=== PATIENT | male | born 1970 | race Two or more races ===

== ENCOUNTER 2024-02-02 10:24 | Outpatient (AMB) | payer MEDICAID, SELFPAY ==
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
[2024-02-02 10:44] VITALS: BP 111/70; PULSE 66; RESP 19; TEMP 36.7; O2SAT 95
== END 2024-02-02 11:20 | disposition home or self-care (01) ==
LOC: HODAHC 10:24
PROVIDERS: PCP Student in an Organized Health Care Education/Training Program; Referring Provider Student in an Organized Health Care Education/Training Program; Supervising Provider Internal Medicine; Visit Provider Student in an Organized Health Care Education/Training Program
DX: E78.5 Hyperlipidemia, unspecified (principal); E11.9 Type 2 diabetes mellitus without complications; Z79.4 Long term (current) use of insulin; Z79.84 Long term (current) use of oral hypoglycemic drugs; Z76.0 Encounter for issue of repeat prescription; M17.0 Bilateral primary osteoarthritis of knee; I10 Essential (primary) hypertension; H53.8 Other visual disturbances
CPT/HCPCS: 99213; G0463

== ENCOUNTER 2024-05-03 10:01 | Outpatient (AMB) | payer MEDICAID, SELFPAY ==
--- NOTE | 2024-05-03 10:11 | ACNOTE_ITS ---
Vital Signs 05/13/24 13:33 Weight 76.7 kg Weight Measurement Method Standing Scale BP 120/78 Blood Pressure Source Automatic Cuff Blood Pressure Location Left Upper Arm Position Sitting Respiration 18 Pulse 18 L Pulse Source Monitor Temp 98.3 F Temp Source Temporal Artery Scan Pulse Oximetry (%) 98 Oxygen Delivery Method Room Air Allergies/Meds Allergies & Medications Allergies No Known Allergies Allergy (Verified 05/13/24 13:34) Medication Reconciliation lidocaine 5 % topical patch 2 patch top QDAY 30 days #30 ea 10/09/23 [Rx Confirmed 05/13/24] pen needle, diabetic 31 gauge x 1/4 (Comfort EZ Pen [place]) #100 ea 10/09/23 [Rx Confirmed 05/13/24] blood sugar diagnostic (Blood Glucose Test strips) #25 ea 10/27/23 [Rx Confirmed 05/13/24] blood-glucose meter #1 ea 10/27/23 [Rx Confirmed 05/13/24] lancets 21 gauge (Easy Touch Safety Lancets) #50 ea 10/27/23 [Rx Confirmed 05/13/24] pen needle, diabetic 29 gauge x 1/2 #100 ea 10/27/23 [Rx Confirmed 05/13/24] blood-glucose meter,continuous (FreeStyle Gaetano 3 [place]) #1 ea 10/30/23 [Rx Confirmed 05/13/24] blood-glucose sensor (FreeStyle Gaetano 3 Sensor device) #1 ea 01/16/24 [Rx Confirmed 05/13/24] atorvastatin 40 mg tablet 40 mg PO QPM Hyperlipidemia 30 days #30 tabs 02/02/24 [Rx Confirmed 05/13/24] indomethacin 25 mg capsule 25 mg PO BID 30 days #60 caps 02/02/24 [Rx Confirmed 05/13/24] insulin degludec 100 unit/mL (3 mL) subcutaneous pen (Tresiba FlexTouch U-100 insulin) 30 unit (0.3 mL) subcut QPM diabetes #15 mL 02/02/24 [Rx Confirmed 05/13/24] insulin syringe-needle U-100 0.5 mL 29 gauge x 1/2 (BD Insulin Syringe) #100 ea 02/02/24 [Rx Confirmed 05/13/24] blood-glucose sensor (FreeStyle Gaetano 3 Sensor device) #1 ea 02/20/24 [Rx Confirmed 05/13/24] blood-glucose sensor (FreeStyle Gaetano 3 Sensor device) #2 ea 05/03/24 [Rx Confirmed 05/13/24] lisinopril 10 mg tablet 10 mg PO QDAY 1 month #30 tabs 05/15/24 [Rx] metformin 1,000 mg tablet,extended release 24hr (osmotic) 1,000 mg PO QDAY #30 tabs 05/15/24 [Rx] MA Intake Visit Data Collection New Patient or Established: Established Patient (seen at [facility] within 3 years) Seen by Clinical Staff ONLY (RN/MA): No Pain Present Currently: No PCP or OBGYN visit in last 3 months: Yes Smoking Status Smoking Status: Former smoker Immunization / Flu Flu Vaccine in the Last 12 Months: Yes Flu Vaccine Exclusion Criteria: No Exclusion Criteria Past Medical History Past Medical History NEUROLOGIC: Negative Neurological Disorders CARDIAC: Negative Cardiac Disorders or Congestive Heart Failure RESPIRATORY: Negative Chronic Obstructive Pulmonary Disease (COPD) or Asthma GASTROINTESTINAL: Negative Gastrointestinal Disorders GENITOURINARY: Negative Genitourinary Disorders or Renal Disease MUSCULOSKELETAL: Positive Arthritis (bilat hands) ENDOCRINE: Negative Endocrine Disorders, Diabetes Mellitus Type 1, Diabetes Mellitus Type 2 or Hyperthyroidism HEMATOLOGIC: Negative Blood Disorders or Sickle Cell Disease Surgical History SURGICAL: Negative Endocrine Surgery Social History SMOKING STATUS: Smoking status: Former smoker SECOND HAND EXPOSURE: second hand exposure: No ALCOHOL FREQUENCY: Alcohol Intake Frequency: 3 or More Drinks per Day HOUSING: Housing: House LIVES WITH: Lives With: Family Patient Leisa Yeh Social History Living Situation History Housing: House Tobacco History Smoking Status: Former smoker Packs per Day: 2 Second Hand Smoke Exposure: No Alcohol History Alcohol Intake Frequency: 3 or More Drinks per Day Review of Systems Report any current symptoms Only answer those that you have currently: Past Medical History Past Medical History Have you ever been diagnosed with any of the following: Cardiology Problems Congestive Heart Failure: No Respiratory Problems Chronic Obstructive Pulmonary Disease (COPD): No Asthma: No Genital/Urinary Problems Renal Disease: No Musculoskeletal Problems Arthritis: Yes (bilat hands) Endocrine Problems Diabetes Mellitus Type 1: No Diabetes Mellitus Type 2: No Hyperthyroidism: No Blood Problems Sickle Cell Disease: No History of Present Illness HPI Narrative Patient presents to [facility] for followup appointment. Patient denies any acute complaints. Labs dated 04/29/2024: CBC WNL, CMP WNL with fasting glucose of 87. A1c 6.2. Reviewed patient's CGM with time in range (70- 180) at 97% indicating excellent control with current regimen. Advised patient to continue current Insulin regimen of Tresiba 30 units HS and metformin 1000mg ER qday. Patient pending opthomology annual eye exam. LDL at goal at 87. Will continue atorvastatin 40 mg PO HS. Patient only requesting refills for [employer] Radiotherapy[employer] gaetano sensors which were sent to his preferred pharmacy. F/u in 3 months with repeat labs. Review of Systems Review of Systems Systems Reviewed: All systems reviewed, normal except as documented Objective/Exam Narrative Physical exam: General: Not in any visible or apparent acute distress, sick appearing, alert, pleasant and interactive HEENT: NC/AT, PERRL, EOMI, good conjugate gaze, moist mucous membranes, oropharynx clear, trachea appears midline, no gross LAD Neck: Supple, No masses, No JVD, normal range of motion CVS: S1S2 Regular rate and rhythm, No murmurs, rubs or gallops Lungs: Normal respiratory effort, no wheezing rhonchi or rales, CTAB Abd: Soft, no tenderness to palpation, no guarding, +BS, no organomegaly Ext: No edema, warm well perfused, normal tone and ROM, strength and sensation intact, cap refill less than 2, +2 dp equal bilaterally Skin: Intact, no rashes, no lesions, no erythema Neuro: AOx3, no gross focal neurological deficits Psych: Appropriate mood and affect Assessment & Plan Diagnosis / Problem List (1) Type 2 diabetes mellitus: Status: Acute Qualifiers: Diabetes mellitus complication detail: without coma Diabetes mellitus complication status: with ketoacidosis Diabetes mellitus half-way insulin use: unspecified buttermaker continuous churn insulin use status Qualified Code(s): E11.10 - Type 2 diabetes mellitus with ketoacidosis without coma Assessment & Plan: Continuous glucose monitor: 100s-120's AM fasting, time in range 97% Plan: Continue with Metformin 1000 ER and Tresiba 30 units Annual Opthomology eye exam referral CBC, BMP and Microalbumin to Cr ratio, F/U in 3 months Advised patient on hypoglycemic symptoms and what measures to take if he feels symptomatic. Strict return precautions advised if symptoms continue. (2) Hypertension: Status: Acute Qualifiers: Hypertension type: primary hypertension Qualified Code(s): I10 - Essential (primary) hypertension Assessment & Plan: Blood pressure continues to be stable Plan: Continue lisinopril (3) Blurred vision, bilateral: Status: Acute Assessment & Plan: Patient has been complaining of blurry vision in bilateral eyes, has been having hard time reading small letters Plan: Opthalmology referral as noted above Additional Assessment Attending note: I, Isaak Aldana MD, attest that I was physically present for the jung portions of the service and evaluated the patient with the resident and I reviewed and discussed the case with the resident and agree with the resident's findings and plans of care as documented above. Follow-up visit. Diabetes self- care reviewed including diet, exercise, footcare, eye care, CGM. Hemoglobin A1c at goal. CGM in range 97% of time. To follow with ophthalmology for annual eye exam. Tolerating medications well. CGM supplies refilled. Follow-up in 3 months. Isaak Aldana MD Physician Billing Established Patient Established Patient: E/M Level 3-CPT 43207 Office Procedures [facility] Level of Care Nursing/Assessment Patient Status: Established Patient Nursing Assessment/Reassessment: Medication Reconciliation, Update PMH in EMR and Vital Signs Coordination of Care: Complex Care and Chronic Disease 1-5, Consent,records obtained, informed consent, Education Simp Pt/Fam and Staff clarify orders Established Patient Charge Established Patient Point Assignment: 85 Established Patient Point Charge: EP Level 3 (80-115)
[2024-05-13 13:33] VITALS: BP 120/78; PULSE 18; RESP 18; TEMP 36.8; O2SAT 98
== END 2024-05-03 10:24 | disposition home or self-care (01) ==
LOC: HODAHC 10:01
PROVIDERS: PCP Student in an Organized Health Care Education/Training Program; Referring Provider Student in an Organized Health Care Education/Training Program; Supervising Provider Internal Medicine; Visit Provider Student in an Organized Health Care Education/Training Program
DX: E11.9 Type 2 diabetes mellitus without complications (principal); Z79.84 Long term (current) use of oral hypoglycemic drugs; Z79.4 Long term (current) use of insulin; I10 Essential (primary) hypertension; H53.8 Other visual disturbances
CPT/HCPCS: 99213; G0463

== ENCOUNTER 2024-08-02 09:48 | Outpatient (AMB) | payer MEDICAID, SELFPAY ==
[2024-08-02 09:57] VITALS: BP 138/80; PULSE 89; RESP 16; TEMP 36.3; O2SAT 98; BMI 26.3
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
== END 2024-08-02 10:29 | disposition home or self-care (01) ==
LOC: HODAHC 09:48
PROVIDERS: PCP Student in an Organized Health Care Education/Training Program; Referring Provider Student in an Organized Health Care Education/Training Program; Supervising Provider Internal Medicine; Visit Provider Student in an Organized Health Care Education/Training Program
DX: E11.10 Type 2 diabetes mellitus with ketoacidosis without coma (principal); Z79.4 Long term (current) use of insulin; Z79.84 Long term (current) use of oral hypoglycemic drugs; I10 Essential (primary) hypertension; L73.1 Pseudofolliculitis barbae; N52.9 Male erectile dysfunction, unspecified
CPT/HCPCS: 99213; G0463

== ENCOUNTER 2024-11-13 10:55 | Outpatient (AMB) | payer MEDICAID, SELFPAY ==
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
[2024-11-13 11:58] VITALS: BP 109/68; PULSE 71; RESP 18; TEMP 36.6; O2SAT 97; BMI 24.9
== END 2024-11-13 12:24 | disposition home or self-care (01) ==
LOC: HODAHC 10:55
PROVIDERS: Supervising Provider Internal Medicine
DX: E11.10 Type 2 diabetes mellitus with ketoacidosis without coma (principal); Z79.4 Long term (current) use of insulin; I10 Essential (primary) hypertension; N52.9 Male erectile dysfunction, unspecified; Z87.2 Personal history of diseases of the skin and subcutaneous tissue
CPT/HCPCS: 99213; G0463

== ENCOUNTER 2025-02-14 14:13 | Outpatient (AMB) | payer MEDICAID, SELFPAY ==
[2025-02-14 14:33] VITALS: BP 111/70; PULSE 19; RESP 83; TEMP 36.7; O2SAT 98; BMI 25.2
--- NOTE | 2025-02-14 14:33 | ACNOTE_ITS ---
<Statement entered by Truman Mejias MD - 02/19/25 14:38> Attending note: I, Truman Mejias MD, attest that I was physically present for the jung portions of the service and evaluated the patient with the resident and I reviewed and discussed the case with the resident and agree with the resident's findings and plans of care as documented above. Vital Signs 02/14/25 14:33 Height 1.73 m Height Method Stated Weight 75.75 kg Weight Measurement Method Standing Scale BMI 25.2 BP 111/70 Blood Pressure Source Automatic Cuff Blood Pressure Location Right Upper Arm Position Sitting Respiration 83 H Pulse 19 L Pulse Source Monitor Temp 98.1 F Temp Source Oral Pulse Oximetry (%) 98 Oxygen Delivery Method Room Air Allergies/Meds Allergies & Medications Allergies No Known Allergies Allergy (Verified 02/14/25 14:34) Medication Reconciliation lidocaine 5 % topical patch 2 patch top QDAY 30 days #30 ea 10/09/23 [Rx Confirmed 02/14/25] blood-glucose meter #1 ea 10/27/23 [Rx Confirmed 02/14/25] lancets 21 gauge (Easy Touch Safety Lancets) #50 ea 10/27/23 [Rx Confirmed 02/14/25] blood-glucose,ticket seller,cont (FreeStyle Gaetano 3 [place]) #1 ea 10/30/23 [Rx Confirmed 02/14/25] blood-glucose sensor (FreeStyle Gaetano 3 Sensor device) #1 ea 01/16/24 [Rx Confirmed 02/14/25] indomethacin 25 mg capsule 25 mg PO BID 30 days #60 caps 02/02/24 [Rx Confirmed 02/14/25] blood-glucose sensor (FreeStyle Gaetano 3 Sensor device) #2 ea 05/03/24 [Rx Confirmed 02/14/25] atorvastatin 40 mg tablet 40 mg PO QPM Hyperlipidemia 30 days #30 tabs 08/02/24 [Rx Confirmed 02/14/25] blood sugar diagnostic (Blood Glucose Test strips) #25 ea 08/02/24 [Rx Confirmed 02/14/25] clindamycin phosphate 1 % lotion (Cleocin T) 1 applic topical BID folliculitis #60 mL 08/02/24 [Rx Confirmed 02/14/25] insulin syringe-needle U-100 0.5 mL 29 gauge x 1/2 #100 ea 08/02/24 [Rx Confirmed 02/14/25] metformin 1,000 mg tablet,extended release 24hr (osmotic) 1,000 mg PO QDAY #30 tabs 08/02/24 [Rx Confirmed 02/14/25] pen needle, diabetic 29 gauge x 1/2 #100 ea 08/02/24 [Rx Confirmed 02/14/25] pen needle, diabetic 31 gauge x 1/4 (Comfort EZ Pen [place]) #100 ea 08/02/24 [Rx Confirmed 02/14/25] sildenafil 50 mg tablet 50 mg PO QDAY PRN sexual activity #10 tabs 08/02/24 [Rx Confirmed 02/14/25] blood-glucose sensor (FreeStyle Gaetano 3 Sensor device) #1 ea 11/13/24 [Rx Confirmed 02/14/25] lisinopril 10 mg tablet 10 mg PO QDAY 1 month #30 tabs 11/13/24 [Rx Confirmed 02/14/25] blood-glucose sensor (FreeStyle Gaetano 3 Plus Sensor device) #2 ea 01/17/25 [Rx Confirmed 02/14/25] insulin degludec 100 unit/mL (3 mL) subcutaneous pen (Tresiba FlexTouch U-100 insulin) 30 unit (0.3 mL) subcut QPM diabetes #15 mL 02/14/25 [Rx] MA Intake Visit Data Collection PCP or OBGYN visit in last 3 months: No Smoking Status Smoking Status: Former smoker Immunization / Flu Flu Vaccine in the Last 12 Months: No Flu Vaccine Exclusion Criteria: No Exclusion Criteria Past Medical History Past Medical History NEUROLOGIC: Negative Neurological Disorders CARDIAC: Negative Cardiac Disorders or Congestive Heart Failure RESPIRATORY: Negative Chronic Obstructive Pulmonary Disease (COPD) or Asthma GASTROINTESTINAL: Negative Gastrointestinal Disorders GENITOURINARY: Negative Genitourinary Disorders or Renal Disease MUSCULOSKELETAL: Positive Arthritis (bilat hands) ENDOCRINE: Negative Endocrine Disorders, Diabetes Mellitus Type 1, Diabetes Mellitus Type 2 or Hyperthyroidism HEMATOLOGIC: Negative Blood Disorders or Sickle Cell Disease Surgical History SURGICAL: Negative Endocrine Surgery Social History SMOKING STATUS: Smoking status: Former smoker SECOND HAND EXPOSURE: second hand exposure: No ALCOHOL FREQUENCY: Alcohol Intake Frequency: 3 or More Drinks per Day HOUSING: Housing: House LIVES WITH: Lives With: Family Patient Portal Questionaires Social History Living Situation History Housing: House Tobacco History Smoking Status: Former smoker Packs per Day: 2 Second Hand Smoke Exposure: No Alcohol History Alcohol Intake Frequency: 3 or More Drinks per Day Review of Systems Report any current symptoms Only answer those that you have currently: Past Medical History Past Medical History Have you ever been diagnosed with any of the following: Cardiology Problems Congestive Heart Failure: No Respiratory Problems Chronic Obstructive Pulmonary Disease (COPD): No Asthma: No Genital/Urinary Problems Renal Disease: No Musculoskeletal Problems Arthritis: Yes (bilat hands) Endocrine Problems Diabetes Mellitus Type 1: No Diabetes Mellitus Type 2: No Hyperthyroidism: No Blood Problems Sickle Cell Disease: No History of Present Illness HPI Narrative Patient is a 54 year old male with past medical history of diabetes mellitus type 2, HTN, HLD, Erectile Dysfunction, and resolved Pseudofolliculitis barbae. 08/02/2024: Patient presents to [facility] for followup appointment. Labs dated 07/29/2024: CBC WNL, CMP WNL with fasting glucose of 8. A1c 6.1. Reviewed patient's CGM with time in range (70-180) at 98% indicating good control within reference range. Advised patient to continue current Insulin regimen of Tresiba 30 units HS and metformin 1000mg ER qday. Patient also has new complaint of rash on the lower mandibular region consistent with folliculitis. Will prescribe clindamycin topical cream. Patient also has new compliant of erectile dysfuntion and requesting medication. Patient states he is still able to obtain AM erection. Will prescribe Sildenafil. 11/13/2024: Patient is here for medication follow up. Patient denied new chief complains. Patient stated pseuofolliculitis barbae, resolved, completed antibiotic course. No syncope events or dizziness. No hypoglycemic episodes. Denied polyuria or polydispia. Patient continue to take degludec 30 units a day. Refilled Degludec and Lisinopril. 02/14/2025: Patient is here for follow up on labs. Patient has history of diabetes type 2, well-controlled with Tresiba 30 units and metformin. A1c 5.5%. Time in range for past 30 days 98% per CGM. Advised patient to decrease daily Tresiba use to 25 units, monitor blood glucose. Advised patient on how to uptitrate as needed. Will follow-up in 3 months with new A1c. Review of Systems Review of Systems Systems Reviewed: All systems reviewed, normal except as documented Objective/Exam Narrative Physical exam: PE: Gen: Well-developed and well-nourished. HEENT: NCAT, PERRLA, EOMI, MMM, anicteric conjunctivae. CVS: normal S1 and S2. RRR. No M/R/G. Resp: CTA B/L. No rhonchi, rales, crackles or wheezing. Abd: soft, non-tender, non-distended. BS+ in all 4 quadrants. MSK: Good ROM in BUE & BLE. No edema or rash. Neuro: CN II-XII grossly intact. Strength 5/5 in BUE & BLE. Alert and oriented x3. Sensation intact BLE. Psych: appropriate mood and affect. Assessment & Plan Diagnosis / Problem List (1) Type 2 diabetes mellitus: Status: Acute Qualifiers: Diabetes mellitus termite treater insulin use: unspecified long-term insulin use status Diabetes mellitus complication status: with ketoacidosis Diabetes mellitus complication detail: without coma Qualified Code(s): E11.10 - Type 2 diabetes mellitus with ketoacidosis without coma Assessment & Plan: Continuous glucose monitor: 100s-120's AM fasting, time in range 98% A1c 5.5% as of January 2025 Plan: Continue with Metformin 1000 ER Tresiba 30 decreased to Tresiba 25 units qDAY Advised patient on hypoglycemic symptoms and what measures to take if he feels symptomatic. Strict return precautions advised if symptoms continue. Advised patient on how to uptitrate Tresiba based on blood glucose. follow up in 3 months. Plan Plan of care discussed with attending Dr. Magalie Reyes MD PGY?[address] [facility] Level of Care Nursing/Assessment Patient Status: Established Patient Nursing Assessment/Reassessment: Medication Reconciliation, Update PMH in EMR and Vital Signs Coordination of Care: Complex Care and Chronic Disease 1-5, Complex Care/Chronic Disease 5 or more and Education Simp Pt/Fam Established Patient Charge Established Patient Point Assignment: 105 Established Patient Point Charge: EP Level 3 (80-115)
== END 2025-02-14 14:54 | disposition home or self-care (01) ==
LOC: HODAHC 14:13
PROVIDERS: Supervising Provider Internal Medicine
DX: E11.9 Type 2 diabetes mellitus without complications (principal); Z79.4 Long term (current) use of insulin; Z79.84 Long term (current) use of oral hypoglycemic drugs
CPT/HCPCS: 99213; G0463

== ENCOUNTER 2025-05-14 14:03 | Outpatient (AMB) | payer MEDICAID, SELFPAY ==
[2025-05-14 14:13] VITALS: BP 125/77; PULSE 84; RESP 19; TEMP 36.5; O2SAT 96; BMI 19.0
--- NOTE | 2025-05-14 14:13 | ACNOTE_ITS ---
Vital Signs 05/14/25 14:13 Height 1.73 m Height Method Stated Weight 56.926 kg Weight Measurement Method Standing Scale BMI 19.0 BP 125/77 Blood Pressure Source Automatic Cuff Blood Pressure Location Right Upper Arm Position Sitting Respiration 19 Pulse 84 Pulse Source Monitor Temp 97.7 F Temp Source Temporal Artery Scan Pulse Oximetry (%) 96 Oxygen Delivery Method Room Air Allergies/Meds Allergies & Medications Allergies No Known Allergies Allergy (Verified 05/14/25 14:14) Medication Reconciliation lidocaine 5 % topical patch 2 patch top QDAY 30 days #30 ea 10/09/23 [Rx Confirmed 05/14/25] blood-glucose meter #1 ea 10/27/23 [Rx Confirmed 05/14/25] lancets 21 gauge (Easy Touch Safety Lancets) #50 ea 10/27/23 [Rx Confirmed 05/14/25] blood-glucose,truck bracer,cont (FreeStyle Gaetano 3 [place]) #1 ea 10/30/23 [Rx Confirmed 05/14/25] blood-glucose sensor (FreeStyle Gaetano 3 Sensor device) #1 ea 01/16/24 [Rx Confirmed 05/14/25] indomethacin 25 mg capsule 25 mg PO BID 30 days #60 caps 02/02/24 [Rx Confirmed 05/14/25] blood-glucose sensor (FreeStyle Gaetano 3 Sensor device) #2 ea 05/03/24 [Rx Confirmed 05/14/25] atorvastatin 40 mg tablet 40 mg PO QPM Hyperlipidemia 30 days #30 tabs 08/02/24 [Rx Confirmed 05/14/25] blood sugar diagnostic (Blood Glucose Test strips) #25 ea 08/02/24 [Rx Confirmed 05/14/25] clindamycin phosphate 1 % lotion (Cleocin T) 1 applic topical BID folliculitis #60 mL 08/02/24 [Rx Confirmed 05/14/25] insulin syringe-needle U-100 0.5 mL 29 gauge x 1/2 #100 ea 08/02/24 [Rx Confirmed 05/14/25] metformin 1,000 mg tablet,extended release 24hr (osmotic) 1,000 mg PO QDAY #30 tabs 08/02/24 [Rx Confirmed 05/14/25] pen needle, diabetic 29 gauge x 1/2 #100 ea 08/02/24 [Rx Confirmed 05/14/25] pen needle, diabetic 31 gauge x 1/4 (Comfort EZ Pen [place]) #100 ea 08/02/24 [Rx Confirmed 05/14/25] sildenafil 50 mg tablet 50 mg PO QDAY PRN sexual activity #10 tabs 08/02/24 [Rx Confirmed 05/14/25] blood-glucose sensor (FreeStyle Gaetano 3 Sensor device) #1 ea 11/13/24 [Rx Confirmed 05/14/25] lisinopril 10 mg tablet 10 mg PO QDAY 1 month #30 tabs 11/13/24 [Rx Confirmed 05/14/25] blood-glucose sensor (FreeStyle Gaetano 3 Plus Sensor device) #2 ea 01/17/25 [Rx Confirmed 05/14/25] insulin degludec 100 unit/mL (3 mL) subcutaneous pen (Tresiba FlexTouch U-100 insulin) 30 unit (0.3 mL) subcut QPM diabetes #15 mL 02/14/25 [Rx Confirmed 05/14/25] MA Intake Visit Data Collection New Patient or Established: Established Patient (seen at [facility] within 3 years) Seen by Clinical Staff ONLY (RN/MA): No Pain Present Currently: No Pain scale:: 0 Pain Scale Used: Kelley-Finley/Numerical Corduroy Cutting Supervisor Required: No PCP or OBGYN visit in last 3 months: Yes Do You Feel Safe at Home: Yes Authorities Contacted: N/A Smoking Status Smoking Status: Former smoker Immunization / Flu Flu Vaccine in the Last 12 Months: No Flu Vaccine Exclusion Criteria: Refused by Patient Past Medical History Past Medical History NEUROLOGIC: Negative Neurological Disorders CARDIAC: Negative Cardiac Disorders or Congestive Heart Failure RESPIRATORY: Negative Chronic Obstructive Pulmonary Disease (COPD) or Asthma GASTROINTESTINAL: Negative Gastrointestinal Disorders GENITOURINARY: Negative Genitourinary Disorders or Renal Disease MUSCULOSKELETAL: Positive Arthritis (bilat hands) ENDOCRINE: Negative Endocrine Disorders, Diabetes Mellitus Type 1, Diabetes Shannan litus Type 2 or Hyperthyroidism HEMATOLOGIC: Negative Blood Disorders or Sickle Cell Disease Surgical History SURGICAL: Negative Endocrine Surgery Social History SMOKING STATUS: Smoking status: Former smoker SECOND HAND EXPOSURE: second hand exposure: No ALCOHOL FREQUENCY: Alcohol Intake Frequency: 3 or More Drinks per Day HOUSING: Housing: House LIVES WITH: Lives With: Family Patient Portal Questionabram Social History Living Situation History Housing: House Tobacco History Smoking Status: Former smoker Packs per Day: 2 Second Hand Smoke Exposure: No Alcohol History Alcohol Intake Frequency: 3 or More Drinks per Day Domestic Abuse History Do You Feel Safe at Home: Yes Review of Systems Report any current symptoms Only answer those that you have currently: Past Medical History Past Medical History Have you ever been diagnosed with any of the following: Cardiology Problems Congestive Heart Failure: No Respiratory Problems Chronic Obstructive Pulmonary Disease (COPD): No Asthma: No Genital/Urinary Problems Renal Disease: No Musculoskeletal Problems Arthritis: Yes (bilat hands) Endocrine Problems Diabetes Mellitus Type 1: No Diabetes Mellitus Type 2: No Hyperthyroidism: No Blood Problems Sickle Cell Disease: No History of Present Illness HPI Narrative Patient is a 54 year old male with past medical history of diabetes mellitus type 2, HTN, HLD, Erectile Dysfunction, and Pseudofolliculitis barbae (Resolved). Patient presented to the office for A1c follow up. Patient stated Tresiba decreased to 25 units but patient increased it back to 30 units per day as several episodes of hyperglycemia greater than 200. 97% within target range based on CGM. Fasting glucose noted at 90-110. No refills needed. 05/06/2025 A1c 5.7 Follow up in 6 months Annual physical exam May:labs A1c, CBC CMP, Lipid panel, PSA Declined colonoscopy FIT test/Cologuard document filled out and request to fax form Review of Systems Review of Systems Narrative Review of Systems: General appearance: NO weight change, NO fatigue, NO weakness, NO fever, NO chills, NO night sweats, No cough Skin: NO rash, NO itching, NO sores, NO moles HEENT: NO Trauma, NO nausea, NO vomiting, NO visual changes, NO blurry vision, NO double vision, NO tinnitus, NO vertigo, NO ear discharge, NO rhinorrhea, NO stuffiness, NO sneezing, NO allergy, NO epistaxis. NO Hoarseness, NO sore throat, NO swollen neck. Cardiac: NO Palpitations, NO dyspnea on exertion, NO orthopnea, NO paroxysmal nocturnal dyspnea, NO edema Respiratory: NO Shortness of Breath, NO Wheezing, NO Cough, NO Sputum, NO hemoptysis GI:NO appetite, NO nausea, NO vomiting, NO dysphagia, NO changes in bowel frequency, NO stool color, NO diarrhea, NO constipation, NO hemetemesis, NO hemorrhoids, NO melena, NO hematechezia, NO abdominal pain, NO jaundice Renal: NO frequency, NO hesitancy, NO urgency, NO hematuria, NO nocturia, NO incontinence MSK: NO muscle weakness, NO gout, NO arthritis, NO muscle stiffness Neuro: NO headaches, NO tremors, NO weakness, NO paralysis, NO seizures, NO loss of consciousness, NO numbness. Hem: NO anemia, NO easy bruising/bleeding, NO petechiae, NO purpura Endo: NO heat/cold intolerance, NO excessive sweating, NO polyuria, NO polydipsia, NO polyphagia, NO thyroid problems, NO diabetes Pysch: NO mood, NO anxiety, NO depression Objective/Exam Narrative Physical exam: General Appearance: Alert and Orientated x3, well-nourished male who is sitting on exam room Thorax/Lungs: Symmetrical with good expansion. Chest and back non-tender. Lungs resonant to percussion. Breath sounds vesicular without crackles, wheezes, or rhonchi Cardiovascular/Peripheral Vascular: No jugular venous distention noted. S1 and S2 heart sounds regular, no murmurs or extra heart sounds auscultated. No peripheral edema noted. Abdomen: Bowel sounds are active. No tenderness to deep or light palpation. 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 Patient declined refill, recently all medication refilled. A1c 5.7% Plan: Continue CGM Tresiba 30 units Metformin 1000 mg once daily (2) Prostate cancer screening: Status: Acute Assessment & Plan: No hematuria and declined urinary retention Plan: PSA ordered (3) Encounter for physical examination: Status: Acute Assessment & Plan: Annual physical exam labs: CBC CMP Lipid A1c PSA Plan - The patient's plan was discussed with attending Dr. Magalie Chavez MD PGY2 Internal Medicine Orders: Orders Glycohemoglobin w (eAG) 1 Month E11.10 - Type 2 diabetes mellitus with ketoacidosis without coma CBC 1 Month E11.10 - Type 2 diabetes mellitus with ketoacidosis without coma Comprehensive Metabolic Panel 1 Month E11.10 - Type 2 diabetes mellitus with ketoacidosis without coma, I10 - Essential (primary) hypertension Lipid Panel 1 Month E11.10 - Type 2 diabetes mellitus with ketoacidosis without coma Prostate Specific Antigen 1 Month Z12.5 - Encounter for screening for malignant neoplasm of prostate Office Procedures [facility] Level of Care Nursing/Assessment Patient Status: Established Patient Nursing Assessment/Reassessment: Medication Reconciliation, Update PMH in EMR and Vital Signs Coordination of Care: Complex Care and Chronic Disease 1-5, Complex Care/Chronic Disease 5 or more, Consent,records obtained, informed consent, Lab and Imaging orders, Results/Orders obtained and Staff clarify orders Established Patient Charge Established Patient Point Assignment: 125 Established Patient Point Charge: Level 4 (120-155)
== END 2025-05-14 15:41 | disposition home or self-care (01) ==
LOC: HODAHC 14:03
PROVIDERS: Supervising Provider Internal Medicine
DX: E11.10 Type 2 diabetes mellitus with ketoacidosis without coma (principal); I10 Essential (primary) hypertension; E78.5 Hyperlipidemia, unspecified; Z79.84 Long term (current) use of oral hypoglycemic drugs; Z79.4 Long term (current) use of insulin
CPT/HCPCS: 99214; G0463